=== PATIENT | female | born 1980 | race Caucasian/White ===

== ENCOUNTER 2025-05-15 22:21 | Emergency (ER) | payer SELFPAY ==
[2025-05-15] MEDS: Ketorolac 30 MG/ML SDV IM ONE (22:49)
[2025-05-15] MEDS: LORazepam 2 MG/ML SDV IM STA (22:51)
[2025-05-15 22:54] LABS: BASOPHILS ABSOLUTE AUTO 0.1 x10-3/uL (0.0-0.1); BASOPHILS PERCENT AUTO 1.1 % (0.2-1.5); EOSINOPHILS ABSOLUTE AUTO 0.2 x10-3/uL (0.0-0.8); EOSINOPHILS PERCENT AUTO 1.4 % (0.6-8.1); LYMPHOCYTES ABSOLUTE AUTO 3.3 x10-3/uL (1.0-4.4); LYMPHOCYTES PERCENT AUTO 28.5 % (18.4-52.1); MEAN PLATELET VOLUME 8.7 fL (7.1-12.4); MONOCYTES ABSOLUTE AUTO 1.1 x10-3/uL (0.3-1.0); MONOCYTES PERCENT AUTO 9.2 % (4.4-15.7); NEUTROPHILS ABSOLUTE AUTO 7.0 x10-3/uL (1.5-6.3); NEUTROPHILS PERCENT AUTO 59.8 % (30.8-76.2); PLATELET COUNT,PLT 255 x10(3)uL (151-488); RED CELL DISTRIBUTION WIDTH 17.2 % (12.3-16.5); WHITE BLOOD CELL COUNT,WBC 11.7 x10-3/uL (3.0-10.3)
[2025-05-15 23:00] LABS: BLOOD UREA NITROGEN,BUN 13 mg/dL (7-18); CARBON DIOXIDE,CO2 29 mmol/L (21-32); CHLORIDE,CL 103 mmol/L (100-110); CREATININE 0.8 mg/dL (0.55-1.02); EST CRCL DRUG DOSING (CG) 85.45 mL/min; ESTIMATED GFR 92 mL/min (>60); GLUCOSE RANDOM 105 mg/dL (80-116); POTASSIUM,K 3.9 mmol/L (3.5-5.3); SODIUM,NA 140 mmol/L (135-145)
[2025-05-15 23:06] LABS: A/G RATIO 1.1; ALANINE AMINOTRANSFERASE,ALT 13 U/L (12-36); ASPARTATE AMNIOTRANSFERASE,AST 17 IU/L (5-25); BILIRUBIN TOTAL 0.2 mg/dL (0.1-1.3); PROTEIN TOTAL,TP 7.7 g/dL (6.0-8.0)
[2025-05-15 23:13] LABS: PRO B-TYPE NATRIUR PEPT,BNPPRO 33 pg/mL (<=125)
[2025-05-15 23:14] LABS: RED BLOOD CELL COUNT 4.48 x10(6)uL (3.60-5.20)
== END 2025-05-15 23:46 | disposition home or self-care (01) ==
LOC: FB.ED 22:21 → MERGE 22:21 → FB.ED 23:46
DX: F41.0 Panic disorder [episodic paroxysmal anxiety] (principal); Z88.0 Allergy status to penicillin
CPT/HCPCS: 36415; 71045; 80053; 83880; 84484; 85025; 93005; 96372; 99285; A9270; J1885; J2060; 93010; 99284